=== PATIENT | male | born 1995 | race Caucasian/White ===

== ENCOUNTER 2018-11-09 16:20 | Emergency (ER) | payer OTHER ==
[~2018-11-09] VITALS: Ht 182.9 cm; Wt 103.0 kg
[2018-11-09 16:21] VITALS: BP 168/85
[2018-11-09] MEDS ORDERED: AUGM875T28 PO (16:27)
[2018-11-09] MEDS ORDERED: HYDR-4514 PO (16:27)
[2018-11-09] MEDS ORDERED: IBUP80TA PO (16:27)
[2018-11-09] MEDS ORDERED: CIPR0.3S AU (17:23)
[2018-11-09] MEDS ORDERED: SUDA1TAB3 PO (17:23)
[2018-11-09] MEDS ORDERED: CIPROFLOXACIN HC OTIC SUSPENSION AU ONE (17:30)
== END 2018-11-09 17:34 | disposition home or self-care (01) ==
LOC: M ED 16:20
DX: H66.93 Otitis media, unspecified, bilateral (principal); H92.03 Otalgia, bilateral; J45.909 Unspecified asthma, uncomplicated

== ENCOUNTER 2019-01-22 06:13 | Emergency (ER) | payer OTHER ==
[~2019-01-22] VITALS: Ht 182.9 cm; Wt 102.3 kg
[~2019-01-22 06:13] MED LIST: AUGM875T28 PO; CIPR0.3S AU; HYDR-4514 PO; IBUP80TA PO; SUDA1TAB3 PO
[2019-01-22] MEDS ORDERED: NS 1,000 ML IV ONE (07:15)
[2019-01-22] MEDS ORDERED: ONDANSETRON 4MG/2ML VIAL (J2405) IV ONE (07:15)
[2019-01-22] MEDS ORDERED: KETOROLAC 30 MG/ML VIAL (J1885) IV ONE (07:15)
[2019-01-22 08:17] LABS: INFLUENZA A AMPLIFICATION NEGATIVE (NEGATIVE); INFLUENZA B AMPLIFICATION NEGATIVE (NEGATIVE)
[2019-01-22] MEDS ORDERED: ZOFR4TAB16 PO (08:22)
[2019-01-22] MEDS ORDERED: ZITHTAB PO (08:22)
[2019-01-22] MEDS ORDERED: NAPR-837 PO (08:22)
--- NOTE | 2019-01-22 08:28 | REP ---
Chest x-ray: Two views. History: Cough and fever. Findings: There is an infiltrate in the left lower lobe consistent with pneumonia. Remaining lung peña are clear. Heart is not enlarged. Pulmonary vasculature is not increased. Pleural angles are sharp. No bony abnormality is seen. Impression: Left lower lobe pneumonia. Electronically Signed by Brandyn Zuniga MD 01/22/2019 09:44 A
[2019-01-22] MEDS ORDERED: AZITHROMYCIN 250 MG TAB PO ONE (08:30)
[2019-01-22 08:48] VITALS: BP 136/63
== END 2019-01-22 08:55 | disposition home or self-care (01) ==
LOC: M ED 06:13
DX: J18.9 Pneumonia, unspecified organism (principal); H66.93 Otitis media, unspecified, bilateral; J45.909 Unspecified asthma, uncomplicated
CPT/HCPCS: 71046; 87502; 87880; 96374; 96375; 99284; J1885; J2405